=== PATIENT | male | born 1935 | race Caucasian/White ===

== ENCOUNTER 2021-01-07 14:03 | Emergency (ER) | payer OTHER ==
[~2021-01-07] VITALS: Ht 175.3 cm; Wt 74.8 kg
--- NOTE | 2021-01-07 14:32 | PHYS DOC ---
Adult General Chief Complaint Chief Complaint: RESP ARREST HPI HPI Patient is a 85-year-old male presenting via EMS for postcode. Patient was apparently at home and in the presence of son and son-in-law when he was observed actively choking and subsequently falling on the floor with significant amount of emesis that was nonbloody and nonbilious in nature. Son reports pulling out significant amount of oranges and recently ingested food while son-in-law called EMS. On EMS arrival ~3 minutes later, patient was unresponsive and cyanotic prompting them to intubate patient with a 7.0 ETT. Shortly after, patient was found to be pulseless in PEA and appropriate ACLS measures were followed. Patient coded for approximately 5 to 6 minutes and had a total of x2 epinephrine administered. A left tibial IO and right upper extremity peripheral IV was placed. While in route, ROSC was obtained. On arrival, patient remains unresponsive, GCS 3 with no purposeful movements. Per EMS report, patient takes Plavix, lisinopril, rosuvastatin and citalopram at home. Review of Systems Review of Systems Unobtainable due to patient's intubated status Physical Exam Physical Exam Constitutional: Toxic appearing in graven appearance, intubated with Kd chest compression machine on arrival. HEENT: Head: Normocephalic and atraumatic. External ears unremarkable, negative eddy sign Conjunctivae and EOM are normal. Pupils are equal, round, and reactive to light. Oropharynx is clear and dry with 7.0 ETT in adequate position No hematomas or lacerations to face or scalp. Abrasion noted to posterior occiput OP clear, no blood, no malocclusion, dentition intact Nares clear, no nasal septal hematoma Midface stable Neck: C-spine midline without obvious palpable abnormalities or step-offs Cardiovascular: Irregular, bradycardic Pulmonary/Chest: Poor respiratory effort in acute distress, intubated with mechanical breath sounds and rhonchi present in bilateral lobes. Indentation and bruising noted to midline sternum where Kd chest compression machine was placed Abdominal: Soft. Bowel sounds are normal. Pt exhibits no distension. There is no ten derness. Musculoskeletal: No bony tenderness to extremities, no deformities, full ROM extremities Chest wall stable Pelvis stable and non-tender No vertebral TTP and spine without stepoffs Neurological: GCS 3 Patient is not alert, there is been no purposeful movements on exam Pupils 2 mm bilaterally and pinpoint with no reaction to light No gag reflex or reaction to painful stimuli Downgoing toes bilaterally Sensation and motor function grossly intact Skin: Skin is warm and dry. No laceration but there is an abrasion noted to posterior occiput which was present from recent fall 4 days ago per daughter Psychiatric: Unable to accurately assess Current Patient Data Vital Signs Vital Signs Date Time Temp Pulse Resp B/P (MAP) Pulse Ox O2 Delivery O2 Flow Rate FiO2 01/07/21 14:05 58 15 Bag Valve Mask 01/07/21 14:06 147/55 (85) 91 01/07/21 14:36 95.6 Vital Signs Date Time Temp Pulse Resp B/P (MAP) Pulse Ox O2 Delivery O2 Flow Rate FiO2 01/07/21 15:22 97.0 60 22 108/62 (77) 100 Ventilator Lab Results Laboratory Tests Test 01/07/21 14:10 01/07/21 15:40 White Blood Count 9.1 x10^3/uL Red Blood Count 3.52 x10^6/uL Hemoglobin 11.4 g/dL Hematocrit 35.3 % Mean Corpuscular Volume 100 fL Mean Corpuscular Hemoglobin 32 pg Mean Corpuscular Hemoglobin Concent 32 g/dL Red Cell Distribution Width 15.2 % Platelet Count 128 x10^3/uL Neutrophils (%) (Auto) 32 % Lymphocytes (%) (Auto) 62 % Monocytes (%) (Auto) 4 % Eosinophils (%) (Auto) 2 % Basophils (%) (Auto) 0 % Neutrophils # (Auto) 2.9 x10^3uL Lymphocytes # (Auto) 5.6 x10^3/uL Monocytes # (Auto) 0.3 x10^3/uL Eosinophils # (Auto) 0.2 x10^3/uL Basophils # (Auto) 0.0 x10^3/uL Platelet Estimate Pending Prothrombin Time 11.8 SEC Prothromb Time International Ratio 1.1 Activated Partial Thromboplast Time 26 SEC Bedside Venous pH 7.10 Bedside Venous pCO2 57 mmHg Bedside Venous pO2 61 mmHg Venous Blood HCO3 18 mmol/L POC Venous O2 Saturation (Omari) 80 % Bedside FiO2 21 Sodium Level 137 mmol/L Potassium Level 4.2 mmol/L Chloride Level 102 mmol/L Carbon Dioxide Level 20 mmol/L Anion Gap 15 Blood Urea Nitrogen 50 mg/dL Creatinine 2.0 mg/dL Estimated GFR (Cockcroft-Gault) 31.8 BUN/Creatinine Ratio 25 Glucose Level 247 mg/dL Lactic Acid Level 8.6 mmol/L Calcium Level 8.6 mg/dL Total Bilirubin 0.6 mg/dL Aspartate Amino Transf (AST/SGOT) 151 U/L Alanine Aminotransferase (ALT/SGPT) 157 U/L Alkaline Phosphatase 90 U/L Ammonia 25 mcmol/L Troponin I Quantitative 0.134 ng/mL Total Protein 6.1 g/dL Albumin 3.0 g/dL Albumin/Globulin Ratio 1.0 Blood Gas pH 7.27 Blood Gas PCO2 42 mmHg Blood Gas PO2 459 mmHg Blood Gas HCO3 20 mmol/L Arterial Bld O2 Saturation (Calc) 100 % FiO2 100 % Current Medications Medications (Trade) Dose Ordered Sig/Fernando Route PRN Reason Start Time Stop Time Status Last Admin Dose Admin Dopamine HCl/ Dextrose 250 ml @ As Directed STK-MED ONCE IV 01/07/21 14:32 01/07/21 14:32 DC Fentanyl Citrate (Fentanyl 2ml Vial) 100 mcg STK-MED ONCE .ROUTE 01/07/21 14:38 01/07/21 14:39 DC Midazolam HCl (Versed) 5 mg STK-MED ONCE .ROUTE 01/07/21 14:39 01/07/21 14:39 DC Propofol 100 ml @ 10 mls/hr CONT PRN IV PER PROTOCOL 01/07/21 14:45 Famotidine (Pepcid Vial) 20 mg BID IVP 01/07/21 21:00 01/07/21 15:32 Midazolam HCl 50 mg/Sodium Chloride 50 ml @ 1 mls/hr 1X ONCE IV 01/07/21 14:45 01/09/21 16:44 Ampicillin Sodium/ Sulbactam Sodium 3 gm/Sodium Chloride 100 ml @ 200 mls/hr 1X ONCE IV 01/07/21 15:15 01/07/21 15:44 DC 01/07/21 15:15 Dopamine HCl/ Dextrose 250 ml @ 14.025 mls/ hr 1X ONCE IV 01/07/21 15:45 01/08/21 09:34 01/07/21 14:34 Fentanyl Citrate (Fentanyl 2ml Vial) 25 mcg 1X ONCE IVP 01/07/21 15:45 01/07/21 15:46 DC 01/07/21 15:45 Atropine Sulfate (ATROPINE 0.5mg SYRINGE) 1 mg 1X ONCE IV 01/07/21 15:45 01/07/21 15:46 DC 01/07/21 14:29 Midazolam HCl (Versed) 2 mg 1X PRN IV SEDATION 01/07/21 15:45 EKG EKG EKG ordered and interpreted by myself at 1418 hrs. as third-degree heart block at 42 bpm, left axis deviation, T wave inversion noted in lead I, III, V2-6, no STEMI Radiology/Procedures Radiology/Procedures Exam Date: 01/07/2021 2:[address] HEAD AND C-SPINE WO, CT THORAX WO Indication: Reason: fall to back of head / Spl. Instructions: / History: . One or more of the following dose reduction techniques were utilized: *Automated exposure control (AEC) *Adjustment of mA and/or kV according to patient size *Use of iterative reconstruction technique *CT scan done according to ALARA, or ALARA/IMAGE GENTLY EXAMINATION: CT OF THE HEAD WITHOUT CONTRAST INDICATION: Trauma, head injury, headache; TECHNIQUE: Noncontrast helical axial CT images of the head were obtained. FINDINGS: The ventricles and sulci are prominent consistent with cerebral volume loss. Patchy ill-defined low attenuation areas in the subcortical and periventricular white matter bilaterally are consistent with microvascular disease. There is no evidence of acute intracranial hemorrhage, extra-axial collection, mass effect, midline shift, or acute territorial infarct. No lesion of the skull base or the calvarium is seen. The visualized paranasal sinuses, mastoid air cells, and orbits are normal in appearance. IMPRESSION: No evidence for acute intracranial abnormality. Volume loss and microvascular disease. EXAMINATION: CT OF THE CERVICAL SPINE WITHOUT CONTRAST Clinical Indication: Cervical spine pain after trauma Technique: Thin cut helical axial CT images through the cervical spine were obtained without contrast on a multi-detector CT scanner. Source data was then reconstructed into sagittal and coronal planes. Findings: Alignment is maintained without spondylolisthesis. Vertebral body heights are maintained without acute fracture. Mild multilevel degenerative changes are noted. No significant prevertebral soft tissue swelling is demonstrated. No severe osseous central canal stenosis is seen. Endotracheal and nasogastric tubes are identified. Impression: No evidence of acute cervical spine fracture or subluxation. Degenerative changes noted. EXAMINATION: CT CHEST without INTRAVENOUS CONTRAST CLINICAL INDICATION: Shortness of breath TECHNIQUE: Chest CT was performed without intravenous contrast. FINDINGS: Motion artifact limits evaluation. Endotracheal tube terminates above the jeanette. Nasogastric tube terminates in the gastric antrum. There are patchy infiltrates and/or atelectasis in the lower lobes bilaterally. No appreciable pleural effusion or pneumothorax. The central airways are patent. There is no focal consolidation, pleural effusion or pneumothorax. The visualized thyroid gland is within normal limits. No lymphadenopathy is seen. The heart is enlarged without pericardial effusion. Coronary artery calcifications are noted. Aorta is normal in caliber with atherosclerotic calcifications. Degenerative changes are seen in the spine. No acute fracture. Images of the upper abdomen demonstrate gallstones and a nonobstructing left renal calculus. IMPRESSION: Bilateral lower lobe patchy infiltrates and/or atelectasis. Cardiomegaly. Coronary artery calcifications noted. Electronically signed by: Thiago Cat MD (01/07/2021 3:42 PM) [id number] Heart Score C/O Chest Pain: No HEART Score for Chest Pain: HEART Score for Chest Pain Response (Comments) Value History Highly Suspicious 2 ECG Nonspecific Repolarizatio 1 Age > 65 2 Risk Factors >3 Risk Factors or Hx CAD 2 Troponin >3 x Normal Limit 2 Total 9 Risk Factors: Risk Factors: DM, Current or recent (<one month) smoker, HTN, HLP, family history of CAD, obesity. Risk Scores: Risk Factors: DM, Current or recent (<one month) smoker, HTN, HLP, family history of CAD, obesity. Course & Med Decision Making Course & Med Decision Making Airway patent with preplaced 7.0 ETT, breathing mechanical in nature, left IO and right upper extremity peripheral in place prior to arrival with subsequent left peripheral IV established. Vitals obtained concerning for marked bradycardia and no respiratory effort telemetry monitor concerning for third-degree heart block. 1 mg epinephrine administered with transient improvement in patient's heart rate. 1 mg atropine subsequently tried without significant improvement. Dopamine drip tried without sustained improvement. Total of 3 L IV fluid administered EKG obtained concerning for third-degree heart block and patient with pacemaker? Bradycardia was intractable to medical intervention and so, transcutaneous pacing was pursued with mechanical capture at 60 bpm. Subsequent chest and pelvis x-ray obtained given fall and unremarkable. Patient stabilized satisfactorily to pursue CT imaging that was grossly unremarkable, c- collar that was placed on arrival by our team was removed after C-spine clearance Conversation had with electronics detail draftsperson at [facility]. 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 He recommended urgent transfer to [facility] I discussed case with patient's son, daughter and granddaughter who later came to ER. They reported that patient fell 4 days prior and was seen for head abrasion at local [place]. Has also been feeling more weak than usual over past 72 hours without any exposure, sick contact etc. Ultimately, joint decision among all to transfer to [facility] for ICU admission for further medical intervention. Family present in ER aware of critical status of patient and associated poor meaningful outcome given today's event. There was question about potential [place] hospital transfer but given time dependent nature of patient's critical state, joint decision among all to transfer to [facility] for immediate intervention. Hospitalist at [facility] contacted and patient accepted under their care All questions and concerns family had were addressed prior to hospital transfer for patient in critical condition for ICU admission Critical Care Time This patient required critical care. Due to the fact that the patient required a significant amount of one on one physician - patient contact time, ordering and review of studies, arranging urgent treatment with development of a management plan, evaluation of patients response to treatment with frequent reassessments, and discussions with other providers this patient required 50 minutes of critical care time. Critical care time was indicated due to the inherent instability and/or potential for instability in this patient. The critical care time that is allocated to this patient is above and beyond any time spent on any other billable procedures performed on this patient. Dragon Disclaimer Dragon Disclaimer This electronic medical record was generated, in whole or in part, using a voice recognition dictation system. Departure Departure: Impression: Primary Impression: Respiratory arrest Additional Impressions: Fall Closed head injury Third degree heart block Sepsis due to pneumonia Aspiration into airway Disposition: 02 [facility] Admitting Physician: Other (DR PÉREZ) Condition: STABLE Problem Qualifiers SIVA BUENO DO Jan 07, 2021 14:31
[2021-01-07] MEDS ORDERED: MIDAZOLAM HCL PF 5 MG/5 ML VIAL. ONE (14:39)
--- NOTE | 2021-01-07 14:40 | RAD ---
Single view of the chest. 01/07/2021 2:00 PM Indication: Reason: fall, s/p intubation / Spl. Instructions: / History: Comparison: None Findings: The endotracheal tube with tip 3 cm above the jeanette. There is an enteric tube extending be low the diaphragm. Dual-lead pacing device right subclavian approach noted. No pneumothorax is identi fied. No pleural effusion seen. Heart size is top normal. No acute focal infiltrates are identified. No acute osseous changes are seen. IMPRESSION: 1. Endotracheal tube 3 cm above the jeanette 2. Enteric tube extending below the diaphragm. 3. No evidence of acute cardiopulmonary process Electronically signed by: Conrado Pierre MD (01/07/2021 2:37 PM) [id number]
[2021-01-07 14:42] LABS: BASO % 0 % (0-3); EOS # 0.2 x10^3/uL (0.0-0.7); EOS % 2 % (0-3); HEMATOCRIT 35.3 % (39.0-53.0); HEMOGLOBIN 11.4 g/dL (13.0-17.5); LYMPH # 5.6 x10^3/uL (1.0-4.8); LYMPH % 62 % (24-48); MEAN CORPUSCULAR HEMOGLOBIN 32 pg (25-35); MEAN CORPUSCULAR HGB CONC 32 g/dL (31-37); MEAN CORPUSCULAR VOLUME 100 fL (79-100); MONO # 0.3 x10^3/uL (0.0-1.1); MONO % 4 % (0-9); NEUT # 2.9 x10^3uL (1.8-7.7); NEUT % 32 % (31-73); PLATELET COUNT 128 x10^3/uL (140-400); RED BLOOD COUNT 3.52 x10^6/uL (4.30-5.70); RED CELL DISTRIBUTION WIDTH 15.2 % (11.5-14.5); WHITE BLOOD COUNT 9.1 x10^3/uL (4.0-11.0)
[2021-01-07] MEDS ORDERED: PROPOFOL 100 ML IV PRN (14:45)
[2021-01-07] MEDS ORDERED: MIDAZOLAM HCL 50 MG in IV NORMAL SALINE 50ML 50 ML IV ONE (14:45)
[2021-01-07] MEDS ORDERED: SODIUM BICARB ADULT 8.4% 50 MEQ/50 ML DISP.SYRIN. ONE (15:00)
[2021-01-07] MEDS ORDERED: ATROPINE 1 MG/10 ML DISP.SYRINGE. ONE (15:00)
[2021-01-07] MEDS ORDERED: EPINEPHrine SYRINGE 1 MG/10 ML SYRINGE ONE (15:00)
--- NOTE | 2021-01-07 15:00 | RAD ---
EXAM: Pelvis, 2 views. HISTORY: Fall. COMPARISON: None. FINDINGS: Frontal views of the pelvis are obtained. There is lucency traversing the right inferior pu bic ramus due to overlying soft tissue artifact. There is no convincing acute fracture. There is righ t greater than left acetabular and femoral head marginal spurring. There is a clip overlying the left femoral head. There is increased density overlying the lateral left femoral neck which appears to be due to soft tissue calcification or ossification. There is degenerative change involving the lower l umbar spine. There are multiple distended air-filled bowel throughout the abdomen. There are clips wi thin the proximal left thigh. IMPRESSION: 1. Moderate right and mild left hip osteoarthritis. 2. Degenerative change involving the lower lumbar spine. 3. Distended air-filled dose of bowel throughout the abdomen. This can be better assessed with dedica reynaldo abdomen radiographs. Electronically signed by: Sandee Hensley MD (01/07/2021 2:57 PM) [id number]
[2021-01-07 15:03] LABS: CALCIUM 8.6 mg/dL (8.5-10.1); GFR 31.8; POTASSIUM 4.2 mmol/L (3.5-5.1)
[2021-01-07 15:08] LABS: TOTAL BILIRUBIN 0.6 mg/dL (0.2-1.0); TOTAL PROTEIN 6.1 g/dL (6.4-8.2)
[2021-01-07] MEDS ORDERED: AMPICILLIN/SULBACTAM 3 GM in IV NORMAL SALINE 100ML 100 ML IV ONE (15:15)
--- NOTE | 2021-01-07 15:19 | EKG ---
[address] [address] Test Date: 2021-01-07 Test Time: 14:16:25 Pat Name: DA DUNCAN Department: Room: Gender: M Tank Pumper Panelboard: : [id number] Requested By: SIVA BUENO Order Number: [id number] Reading MD: Emmett Hanna Measurements Intervals [place] Rate: 42 P: SD: QRS: -38 QRSD: 114 T: 220 QT: 490 QTc: 415 Interpretive Statements COMPLETE HEART BLOCK ABNORMAL LEFT AXIS DEVIATION LEFT ANTERIOR FASCICULAR BLOCK LVH WITH REPOLARIZATION ABNORMALITY QRS(T) CONTOUR ABNORMALITY CONSIDER ANTEROSEPTAL MYOCARDIAL DAMAGE ABNORMAL ECG RI6.02 No previous ECG available for comparison Electronically Signed On 01-09-2021 16:06:07 CDT by Emmett Hanna
--- NOTE | 2021-01-07 15:44 | RAD ---
Exam Date: 01/07/2021 2:[address] HEAD AND C-SPINE WO, CT THORAX WO Indication: Reason: fall to back of head / Spl. Instructions: / History: . One or more of the following dose reduction techniques were utilized: *Automated exposure control (AEC) *Adjustment of mA and/or kV according to patient size *Use of iterative reconstruction technique *CT scan done according to ALARA, or ALARA/IMAGE GENTLY EXAMINATION: CT OF THE HEAD WITHOUT CONTRAST INDICATION: Trauma, head injury, headache; TECHNIQUE: Noncontrast helical axial CT images of the head were obtained. FINDINGS: The ventricles and sulci are prominent consistent with cerebral volume loss. Patchy ill-defined low attenuation areas in the subcortical and periventricular white matter bilaterally are consistent with microvascular disease. There is no evidence of acute intracranial hemorrhage, extra-axial collecti on, mass effect, midline shift, or acute territorial infarct. No lesion of the skull base or the calv arium is seen. The visualized paranasal sinuses, mastoid air cells, and orbits are normal in appearan ce. IMPRESSION: No evidence for acute intracranial abnormality. Volume loss and microvascular disease. EXAMINATION: CT OF THE CERVICAL SPINE WITHOUT CONTRAST Clinical Indication: Cervical spine pain after trauma Technique: Thin cut helical axial CT images through the cervical spine were obtained without contrast on a multi-detector CT scanner. Source data was then reconstructed into sagittal and coronal planes. Findings: Alignment is maintained without spondylolisthesis. Vertebral body heights are maintained without acute fracture. Mild multilevel degenerative changes ar e noted. No significant prevertebral soft tissue swelling is demonstrated. No severe osseous central canal stenosis is seen. Endotracheal and nasogastric tubes are identified. Impression: No evidence of acute cervical spine fracture or subluxation. Degenerative changes noted. EXAMINATION: CT CHEST without INTRAVENOUS CONTRAST CLINICAL INDICATION: Shortness of breath TECHNIQUE: Chest CT was performed without intravenous contrast. FINDINGS: Motion artifact limits evaluation. Endotracheal tube terminates above the jeanette. Nasogastric tube terminates in the gastric antrum. There are patchy infiltrates and/or atelectasis in the lower lobes bilaterally. No appreciable pleur al effusion or pneumothorax. The central airways are patent. There is no focal consolidation, pleural effusion or pneumothorax. The visualized thyroid gland is within normal limits. No lymphadenopathy is seen. The heart is enla rged without pericardial effusion. Coronary artery calcifications are noted. Aorta is normal in alfredo iber with atherosclerotic calcifications. Degenerative changes are seen in the spine. No acute fracture. Images of the upper abdomen demonstrate gallstones and a nonobstructing left renal calculus. IMPRESSION: Bilateral lower lobe patchy infiltrates and/or atelectasis. Cardiomegaly. Coronary artery calcifications noted. Electronically signed by: Thiago Cat MD (01/07/2021 3:42 PM) [id number]
[2021-01-07] MEDS ORDERED: ATROPINE 0.5 MG/5 ML DISP.SYRIN. IV ONE (15:45)
[2021-01-07] MEDS ORDERED: MIDAZOLAM HCL PF 5 MG/5 ML VIAL. IV PRN (15:45)
[2021-01-07 15:57] LABS: BGAS PH 7.27 (7.35-7.46)
[2021-01-07 16:11] LABS: BACTERIA,URINE FEW /HPF (0-FEW); BILIRUBIN,URINE NEG (NEG); CLARITY,URINE HAZY; COLOR,URINE YELLOW; GLUCOSE,URINE NEG (NEG); NITRITE,URINE NEG (NEG); SQUAMOUS EPITHELIAL CELL,UR FEW /LPF; UROBILINOGEN,URINE 0.2 mg/dL (0.2 mg/dL); YEAST,URINE PRESENT /HPF
[2021-01-07 16:31] VITALS: BP 117/51
[2021-01-07 16:33] LABS: % ATYL 3 % (0-0); % BANDS 1 % (0-9); % EOS 1 % (0-5); % LYMPHS 59 % (24-48); % MONOS 6 % (0-10); % SEGS 30 % (35-66)
[2021-01-07 16:34] LABS: PLT ESTIMATE DECREASED (ADEQUATE)
[2021-01-07] MEDS ORDERED: FAMOTIDINE 20 MG/2 ML VIAL IVP SCH (21:00)
== END 2021-01-07 16:55 | disposition short-term general hospital (02) ==
LOC: EDBD 14:03 → ER 14:03
DX: T17.918A Gastric contents in respiratory tract, part unspecified causing other injury, initial encounter (principal); S20.219A Contusion of unspecified front wall of thorax, initial encounter; S00.01XA Abrasion of scalp, initial encounter; A40.3 Sepsis due to Streptococcus pneumoniae; R09.2 Respiratory arrest; I44.2 Atrioventricular block, complete; Z20.822 Contact with and (suspected) exposure to COVID-19; W18.39XA Other fall on same level, initial encounter; Y93.89 Activity, other specified; Y92.89 Other specified places as the place of occurrence of the external cause; Y99.8 Other external cause status
CPT/HCPCS: 36415; 36600; 51702; 70450; 71045; 71250; 72125; 72170; 80053; 81001; 82140; 82803; 83605; 84484; 85007; 85025; 85610; 85730; 87040; 87426; 93005; 96365; 96366; 96375; 99291; C9803; J0171; J0295; J0461; J1265; J2250; J3010; J3490; U0003; 94002